=== PATIENT | female | born 1965 | race African-American/Black ===

== ENCOUNTER 2023-02-01 03:47 | Day surgery (SDC) | payer OTHER ==
[2023-01-27 17:38] VITALS: BMI 26.8
[~2023-02-01 03:47] MED LIST: IODINE/POTASSIUM IODIDE 5%/10% 14 ML BOTTLE NR ONE
[2023-02-01] MEDS ORDERED: LIDOCAINE HCL/PF 2% SDV 5ML VIAL ONE (08:06)
[2023-02-01] MEDS ORDERED: ONDANSETRON 4 MG/2 ML VIAL ONE (08:06)
[2023-02-01] MEDS ORDERED: PROPOFOL 40 ML ONE (08:06)
[2023-02-01] MEDS ORDERED: KETOROLAC TROMETHAMINE 30 MG/1 ML VIAL ONE (08:06)
[2023-02-01] MEDS ORDERED: DEXAMETHASONE SOD PHOSPHATE 4 MG/1 ML VIAL ONE (08:06)
[2023-02-01] MEDS ORDERED: MIDAZOLAM HCL 2 MG/2 ML SINGLE DOSE VIAL ONE (08:55)
[2023-02-01] MEDS ORDERED: ePHEDrine SULFATE 50 MG/1 ML AMPULE ONE (09:37)
[2023-02-01] MEDS ORDERED: IODINE/POTASSIUM IODIDE 5%/10% 14 ML BOTTLE NR ONE (09:43)
[2023-02-01] MEDS ORDERED: metroNIDAZOLE 0.75% VAGINAL GEL 70 GM TUBE ONE (09:52)
[2023-02-01] MEDS ORDERED: metroNIDAZOLE 0.75% VAGINAL GEL 70 GM TUBE VG ONE (09:53)
[2023-02-01] MEDS ORDERED: IBUPROFEN 800 MG/8 ML IJ IVPB PRN (10:11)
[2023-02-01] MEDS ORDERED: oxyCODONE HCL 5 MG TABLET PO PRN (10:11)
[2023-02-01] MEDS ORDERED: ACETAMINOPHEN 325 MG TABLET (FP) PO PRN (10:11)
[2023-02-01] MEDS ORDERED: IBUPROFEN 600 MG TABLET (FP) PO PRN (10:11)
[2023-02-01] MEDS ORDERED: ONDANSETRON 4 MG/2 ML VIAL IVPUSH PRN (10:11)
[2023-02-01] MEDS ORDERED: ELECTROLYTE-148 SOLN 1,000 ML IV SCH (10:15)
[2023-02-01] MEDS ORDERED: LACTATED RINGERS SOLUTION 1,000 ML IV SCH (10:15)
[2023-02-01 11:37] VITALS: TEMP 97.1
[2023-02-01 12:49] VITALS: RESP 20
[2023-02-01 13:08] VITALS: BP 120/85; PULSE 61
== END 2023-02-01 12:34 | disposition home or self-care (01) ==
LOC: JASU-SURG 03:47
PROVIDERS: ATTEND Obstetrics & Gynecology
PROC: 0UBC8ZX Excision of Cervix, Via Natural or Artificial Opening Endoscopic, Diagnostic (ICD-10-PCS; principal; 2023-02-01 09:00)
DX: N72 Inflammatory disease of cervix uteri (principal)
CPT/HCPCS: 82962; 94760